=== PATIENT | male | born 1950 | race Two or more races ===

== ENCOUNTER 2016-04-30 11:44 | Emergency (ER) | payer OTHER ==
[~2016-04-30] VITALS: Ht 180.3 cm; Wt 108.9 kg
[2016-04-30 12:52] VITALS: BP 158/95
== END 2016-04-30 12:56 | disposition home or self-care (01) ==
LOC: ER 11:46
DX: S20.212A Contusion of left front wall of thorax, initial encounter (principal); I10 Essential (primary) hypertension; W22.8XXA Striking against or struck by other objects, initial encounter; Y92.89 Other specified places as the place of occurrence of the external cause; Y93.89 Activity, other specified; Y99.8 Other external cause status
CPT/HCPCS: 71100; 99283; A4606; Z7610